=== PATIENT | female | born 1990 | race African-American/Black ===

== ENCOUNTER 2019-07-21 07:55 | Emergency (ER) | payer SELFPAY ==
--- OUTSIDE RECORDS SUMMARY | 2019-07-21 08:00 | XMS REPORT | Summary of Care ---
:1990 Author Organization [facility] Address [address] [place] [id number] Care Team Providers Name Role Phone Umm Kaiser Babin Primary Care Provider Reason for Visit Reason Comments Tooth Pain Abscess Auth/Cert Status Reason Specialty Diagnoses / Referred By Referred To Procedures Contact Contact [facility] [address] [place] [address] [place] [address] Encounter Details Date Type Department Care Team Description 07/19/2019 Emergency [facility] Jose Hunter MD Pain due to dental Department [facility] caries (Primary Dx) [address] [place] [address] [id number] [place] [address] [place], [place] [phone] Allergies No Known Allergiesdocumented as of this encounter (statuses as of 07/19/2019) Medications Medication Sig Dispensed Refills Start Date End Date Status chlorhexidine Swish and 473 mL 0 12/15/2016 Active (PERIDEX) 0.12 % spit out 15 mouthwash mL 2 (two) times daily. nystatin/maalox/diph Take 10 mL by 1 Bottle 0 12/15/2016 Active enhydrAMINE/lidocain mouth as e 2 % viscous needed for 1:1:1:1 Susp Pain (scale suspension 4-6). naproxen sodium 550 Take 1 tablet 14 tablet 0 01/17/2018 Active mg tablet by mouth 2 (two) times daily with meals. acetaminophen-codein Take 1 tablet 15 tablet 0 07/19/2019 Active e (TYLENOL-CODEINE by mouth #3) 300-30 mg every 6 (six) tabletIndications: hours as Pain due to dental needed for caries Pain (scale 4-6). penicillin v Take 1 tablet 21 tablet 0 07/19/2019 07/26/2019 Active potassium 500 mg by mouth 3 tabletIndications: (three) times Pain due to dental daily for 7 caries days. ibuprofen 600 mg Take 1 tablet 20 tablet 0 07/19/2019 Active tabletIndications: by mouth 3 Pain due to dental (three) times caries daily with meals. ibuprofen 600 mg Take 1 tablet 20 tablet 0 07/19/2019 07/19/2019 Discontinued tabletIndications: by mouth 3 Pain due to dental (three) times caries daily with meals. documented as of this encounter (statuses as of 07/19/2019) Active Problems No known active problemsdocumented as of this encounter (statuses as of 2018) Social History Tobacco Use Types Packs/Day Years Used Date Never Smoker Alcohol Use Drinks/Week oz/Week Comments Not Asked 0 Standard drinks or equivalent 0.0 Sex Assigned at Date Recorded Not on file Job Start Date Occupation Industry Not on file Not on file Not on file Travel History Travel Start Travel End No recent travel history available. documented as of this encounter Last Filed Vital Signs Vital Sign Reading Time Taken Comments Blood Pressure 150/114 07/19/2019 8:30 AM CDT Pulse 98 07/19/2019 8:30 AM CDT Temperature 37.3 C (99.2 F) 07/19/2019 8:20 AM CDT Respiratory Rate 16 07/19/2019 8:30 AM CDT Oxygen Saturation 100% 07/19/2019 8:30 AM CDT Inhaled Oxygen Concentration - - Weight 79.4 kg (175 lb) 07/19/2019 8:20 AM CDT Height 154.9 cm (5' 1") 07/19/2019 8:20 AM CDT Body Mass Index 33.07 07/19/2019 8:20 AM CDT documented in this encounter Discharge Instructions Jose Sandhu MD - 07/19/2019 DIAGNOSIS Diagnoses that have been ruled out: None Diagnoses that are still under consideration: None Final diagnoses: Pain due to dental caries NO LIFE-THREATENING FINDINGS ON TODAY'S EXAM. PROCEDURES IN THE ER TODAY: No orders of the defined types were placed in this encounter. MEDICATIONS ADMINISTERED IN THE ER TODAY: Orders Placed This Encounter Medications HYDROcodone-acetaminophen (NORCO 5) 5-325 mg tablet 1 tablet ibuprofen (IBU) tablet 600 mg acetaminophen-codeine (TYLENOL-CODEINE #3) 300-30 mg tablet ibuprofen 600 mg tablet penicillin v potassium 500 mg tablet YOUR PRESCRIPTIONS AND [id number] MEDICATION RECOMMENDATIONS: Pen VK Tylenol #3 Ibuprofen SPECIAL CARE INSTRUCTIONS: Follow up with Dentist Return to the ED if worsening of symptoms FOLLOW-UP RECOMMENDATIONS: RECOMMEND FOLLOW-UP WITH A PRIMARY CARE PROVIDER OR SPECIALIST IN 2-5 DAYS, ESPECIALLY IF NO IMPROVEMENT IN SYMPTOMS. TO FOLLOW-UP WITHIN THE [facility], TRY THESE OPTIONS (CLINIC APPOINTMENTS AVAILABLE ON [id number] BASIS): 1. SCHEDULE AN APPOINTMENT ONLINE AT WWW[facility] 2. OR CALL THE [facility] AT OR 3. OR CALL YOUR [facility] PHYSICIAN'S OFFICE DIRECTLY IF YOU ARE ALREADY AN ESTABLISHED [facility] PATIENT. OR, YOU MAY FOLLOW-UP WITH A PROVIDER OF YOUR CHOICE, SUCH : 1. A PHYSICIAN OF YOUR CHOICE 2. [facility], . LOCATIONS IN [facility] 3. [facility], [address] [place] [address]; RETURN TO ER FOR WORSENING OF SYMPTOMS. AttachmentsThe following attachments cannot be sent through Care Everywhere.Dental Cavity ([place])Tooth Decay, Understanding ([place]) documented in this encounter Plan of Treatment Health Maintenance Due Date Last Done Comments VARICELLA VACCINES (1 of 2 - 13+ 2003 2-dose series) DTaP,Tdap,and Td Vaccines (1 - 2009 Tdap) PAP SMEAR 2011 INFLUENZA VACCINE (Retired 08/01/2019 version) PNEUMOCOCCAL 0-64 YEARS COMBINED Aged Out No longer eligible based on SERIES patient's age to complete this topic documented as of this encounter Procedures Procedure Name Priority Date/Time Associated Diagnosis Comments NOTICE OF PRIVACY Routine 07/19/2019 8:11 AM CDT PRACTICES documented in this encounter Results Not on filedocumented in this encounter Visit Diagnoses Diagnosis Pain due to dental caries - Primary documented in this encounter Administered Medications Medication Order MAR Action Action Date Dose Rate Site HYDROcodone-acetaminophen Given 07/19/2019 9:17 AM CDT 1 tablet (NORCO 5) 5-325 mg tablet 1 tablet 1 tablet, Oral, ONCE, 1 dose, Fri07/19/19 at 1015, STACY ibuprofen (IBU) tablet 600 mg Given 07/19/2019 9:17 AM CDT 600 mg 600 mg, Oral, ONCE, 1 dose, Fri07/19/19 at 1015, STACY documented in this encounter
--- OUTSIDE RECORDS SUMMARY | 2019-07-21 08:00 | XMS REPORT ---
:1990 [facility] Address [address] [place] [address] [address] [place] [address] Care Team Providers Name Role Phone Unavailable Unavailable Unavailable Problems This patient has no known problems. Allergies, Adverse Reactions, Alerts This patient has no known allergies or adverse reactions. Medications This patient has no known medications.
[2019-07-21] MEDS ORDERED: ONDANSETRON 4 MG/2 ML VIAL ONE (08:37)
[2019-07-21] MEDS ORDERED: NA CHLORIDE 0.9% 1,000 ML ONE (08:37)
[2019-07-21] MEDS ORDERED: LIDOCAINE 1% MPF 5 ML VIAL ONE (08:37)
[2019-07-21 08:42] LABS: Absolute Lymphocytes (CBC) 1.3 K/uL (0.7-4.9); Basophils % 0.6 % (0-1.3); Hematocrit 33.2 % (36.0-45.0); Lymphocytes % 11.9 % (15.3-44.8); MPV 7.3 fL (7.6-11.3)
[2019-07-21] MEDS ORDERED: dexAMETHasone 10 MG/ML VIAL ONE (08:42)
[2019-07-21] MEDS ORDERED: MORPHINE 4 MG/ML SYR ONE (08:43)
[2019-07-21 08:57] LABS: BUN Blood Urea Nitrogen 8 mg/dL (7-18); Bicarbonate 26 mmol/L (21-32); Glucose Level 119 mg/dL (74-106); Potassium 3.9 mmol/L (3.5-5.1); Sodium Level 140 mmol/L (136-145)
--- NOTE | 2019-07-21 09:47 | RAD REPORT ---
[facility] DES[facility]: eval for facial abscess Facial pain and swelling COMPARISON: No comparisons TECHNIQUE: Axial 2 mm thick images of the face with contrast were obtained with sagittal and coronal reconstruction images. All CT scans are performed using dose optimization technique as appropriate and may include automated exposure control or mA/KV adjustment according to patient size. FINDINGS: A large subperiosteal abscess is seen along the left buccal cortex of mandible measuring 2 4 x 15 x 15 mm (AP x T x CC). Surrounding soft tissues are thickened and edematous.Moderate mucosal t hickening of the left maxillary antrum is seen. The left maxillary first and second molar roots are s een to project into the left maxillary antrum.No osteomyelitis of the mandible suspected. The globes and orbital contents are grossly unremarkable.Mastoid air cells are clear. Few mildly prom inent reactive lymph nodes are seen along both jugular chains. IMPRESSION: Large subperiosteal abscess along the left maxillary cortex buccal surface.
--- NOTE | 2019-07-21 10:43 | ER ---
Nurse's Notes [facility] Name: Issa Reilly Age: 29 yrs Sex: Female : 1990 Arrival Date: 07/21/2019 Time: 08:01 Bed 7 Private MD: Diagnosis: Cutaneous abscess of face;Periapical abscess without sinus Presentation: 07/21 08:21 Presenting complaint: states: had a root canal an filling fell out about a iw month ago, had a lot of pain Friday, went to [place] [facility] and was prescribed abx, pain and swelling has gotten worse, large amount of swelling to left side of face, difficult to speak. Transition of care: patient was not received from another setting of care. Onset of symptoms was July 16, 2019. Risk Assessment: Do you want to hurt yourself or someone else? Patient reports no desire to harm self or others. Initial Sepsis Screen: Does the patient meet any 2 criteria? No. Patient's initial sepsis screen is negative. Does the patient have a suspected source of infection? No. Patient's initial sepsis screen is negative. Care prior to arrival: None. 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 - Social history:: Smoking status: Patient/guardian denies using tobacco. - Ebola Screening: : Patient negative for fever greater than or equal to 101.5 degrees Fahrenheit, and additional compatible Ebola Virus Disease symptoms Patient denies exposure to infectious person Patient denies travel to an Ebola-affected area in the 21 days before illness onset No symptoms or risks identified at this time. - Family history:: not pertinent. - Hospitalizations: : No recent hospitalization is reported. Assessment: 08:30 General: Appears in no apparent distress. uncomfortable, well groomed, well developed, sg well nourished, Behavior is calm, cooperative, appropriate for age. Pain: Complains of pain in left cheek and left jaw Quality of pain is described as aching, tender. Neuro: Level of Consciousness is awake, alert, obeys commands, Oriented to person, place, time, Wire Stitcher Operator are equal bilaterally Moves all extremities. Gait is steady, Speech is normal. Cardiovascular: No deficits noted. Capillary refill is brisk in bilateral fingers Patient's skin is warm and dry. Chest pain is denied. Respiratory: Airway is patent Respiratory effort is even, unlabored, Respiratory pattern is regular, symmetrical. GI: Abdomen is round non-distended, Reports normal bowel habits, tolerance of fluids, tolerance of food. : No signs and/or symptoms were reported regarding the genitourinary system. EENT: Oral mucosa is moist. swelling noted to upper jaw on left side of mouth. Throat is clear. Derm: Skin is pink, warm \T\ dry. Musculoskeletal: Circulation, motion, and sensation intact. Range of motion: intact in all extremities. 09:40 Reassessment: Patient appears in no apparent distress at this time. Patient and/or sg family updated on plan of care and expected duration. Pain level reassessed. Patient is alert, oriented x 3, equal unlabored respirations, skin warm/dry/pink. pt reports still experiencing pain in the upper portion of left side of jaw, reports pain is decreased but still uncomfortable, updated pt that the CT results are not back yet and that the ERP may have to I/D area to relieve the pain and pressure, pt reports understanding, will continue to monitor Patient states symptoms have not improved. Vital Signs: 08:23 BP 148 / 105; Pulse 115; Resp 18 S; Temp 98.3(TE); Pulse Ox 98% on R/A; Weight 68.04 iw kg; Height 5 ft. 1 in. (154.94 cm); Pain 10/10; 09:46 BP 133 / 85; Pulse 92; Resp 16; Pulse Ox 98% on R/A; Pain 9/10; sg 08:23 Body Mass Index 28.34 (68.04 kg, 154.94 cm) iw ED Course: 08:01 Patient arrived in ED. cf2 08:13 Dario Ruiz MD is Attending Physician. rn 08:23 Triage completed. iw 08:24 Arm band placed on. iw 08:30 Initial lab(s) drawn, by me, sent to lab. Inserted saline lock: 22 gauge in right sg antecubital area, using aseptic technique. Blood collected. 09:00 Vineet Balderas, RN is Primary Nurse. 09:19 CT Facial Bones W/ Con \T\ Mpr In Process Unspecified. EDMS Administered Medications: 08:40 Drug: morphine 4 mg {Note: RASS 0.} Route: IVP; Site: right antecubital; sg 09:30 Follow up: Response: No adverse reaction; Pain is unchanged, physician notified; RASS: sg Alert and Calm (0) 08:40 Drug: Zofran 4 mg Route: IVP; Site: right antecubital; sg 08:40 Drug: NS 0.9% 500 ml Route: IV; Rate: bolus; Site: right antecubital; sg 08:42 Drug: Decadron - Dexamethasone 10 mg Route: IVP; Site: right antecubital; sg 09:00 Drug: Lidocaine (1 %) 5 mg {Note: medication to be administered by for I/D.} sg Route: Infiltration; 10:52 Drug: Clindamycin 600 mg Route: IM; Site: right ventrogluteal; Outcome: 10:42 Discharge ordered by . rn 11:13 Patient left the ED. ph Signatures: Dispatcher [employer] EDMS Vineet Balderas RN RN sg Williams, Irene, RN RN Dario Ruiz MD MD rn Hall, Patricia, RN RN Selwyn Langford 2 Corrections: (The following items were deleted from the chart) 09:40 08:40 morphine 4 mg IVP in right antecubital sg
--- NOTE | 2019-07-21 10:44 | EDPHYS ---
Physician Documentation [facility] Name: Issa Reilly Age: 29 yrs Sex: Female : 1990 Arrival Date: 07/21/2019 Time: 08:01 Bed 7 Private MD: ED Physician Dario Ruiz HPI: 07/21 08:27 This 29 yrs old Black Female presents to ER via Ambulatory with complaints of Abscess. rn 08:27 the patient presents with a swollen area of the face. Description: swollen. Onset: The rn symptoms/episode began/occurred 4 day(s) ago. Possible cause(s): unknown. Associated signs and symptoms: Pertinent positives: swelling, Pertinent negatives: drainage, shortness of breath. Severity of symptoms: At their worst the symptoms were moderate, in the emergency department the symptoms are unchanged. The patient has not experienced similar symptoms in the past. The patient has been recently seen by a physician:. Reports swelling to left face that began 4-5 days ago, reports started with tooth pain, went to [place] [facility] and given abx, reports worsening. No trouble swallowing or breathing.. 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 - Social history:: Smoking status: Patient/guardian denies using tobacco. - Ebola Screening: : Patient negative for fever greater than or equal to 101.5 degrees Fahrenheit, and additional compatible Ebola Virus Disease symptoms Patient denies exposure to infectious person Patient denies travel to an Ebola-affected area in the 21 days before illness onset No symptoms or risks identified at this time. - Family history:: not pertinent. - Hospitalizations: : No recent hospitalization is reported. ROS: 08:27 Constitutional: Negative for fever, chills, and weight loss, Eyes: Negative for injury, rn pain, redness, and discharge, ENT: + left facial swelling and dental pain Neck: Negative for injury Cardiovascular: Negative for chest pain, palpitations, and edema, Respiratory: Negative for shortness of breath, cough, wheezing, and pleuritic chest pain, Abdomen/GI: Negative for abdominal pain, nausea, vomiting, diarrhea, and constipation, Neuro: Negative for headache, weakness, numbness, tingling, and seizure. Exam: 08:27 Constitutional: This is a well developed, well nourished patient who is awake, alert, rn and in no acute distress. Ambulatory to room without difficulty or assistance Head/Face: Atraumatic. ENT: +poor dentition with left perimandibular swelling with area of 2cm induration/firmness in buccal space. Neck: Trachea midline, no thyromegaly or masses palpated, and no cervical lymphadenopathy. Supple, full range of motion without nuchal rigidity, or vertebral point tenderness. No Meningismus. Cardiovascular: Tachycardic, regular, pulses intact Respiratory: No increased work of breathing, no retractions or nasal flaring. MS/ Extremity: Pulses equal, no cyanosis. Neurovascular intact. Full, normal range of motion. Equal circumference. Neuro: Awake and alert, GCS 15, oriented to person, place, time, and situation. Cranial nerves II-XII grossly intact. Motor strength 5/5 in all extremities. Sensory grossly intact. Cerebellar exam normal. Normal gait. Vital Signs: 08:23 BP 148 / 105; Pulse 115; Resp 18 S; Temp 98.3(TE); Pulse Ox 98% on R/A; Weight 68.04 iw kg; Height 5 ft. 1 in. (154.94 cm); Pain 10/10; 09:46 BP 133 / 85; Pulse 92; Resp 16; Pulse Ox 98% on R/A; Pain 9/10; sg 08:23 Body Mass Index 28.34 (68.04 kg, 154.94 cm) iw Procedures: 10:14 I \T\ D: Incision and drainage was performed for an abscess of the left mandibular rn Prepped with alcohol, Anesthetized with 3 ml's 1% Lidocaine. Incised with #11 blade. Drained moderate amount purulent fluid. serosanguinous fluid. the patient tolerated the procedure well, Irrigated and then probed with 18g needle to look for pockets. Used wall suction to drain remaining purulence. MDM: 08:13 Patient medically screened. rn 10:41 Differential diagnosis: abscess. Data reviewed: vital signs, nurses notes, lab test rn result(s), radiologic studies, and as a result, I will discharge patient. Counseling: I had a detailed discussion with the patient and/or guardian regarding: the historical points, exam findings, and any diagnostic results supporting the discharge/admit diagnosis, lab results, radiology results, the need for outpatient follow up, to return to the emergency department if symptoms worsen or persist or if there are any questions or concerns that arise at home. Response to treatment: the patient's symptoms have markedly improved after treatment, and as a result, I will discharge patient. Special discussion: I discussed with the patient/guardian in detail that at this point there is no indication for admission to the hospital. It is understood, however, that if the symptoms persist or worsen the patient needs to return immediately for re-evaluation. 10:41 Special discussion: Based on the history and exam findings, there is no indication for rn further emergent testing or inpatient evaluation. I discussed with the patient/guardian the need to see a dentist for further evaluation of the symptoms. 07/21 08:24 Order name: CBC with Diff; Complete Time: 09:01 rn 07/21 08:24 Order name: Basic Metabolic Panel; Complete Time: 09:01 rn 07/21 08:24 Order name: CT Facial Bones W/ Con \T\ Mpr; Complete Time: 10:14 rn 07/21 08:24 Order name: IV Start; Complete Time: 09:01 rn 07/21 08:24 Order name: NPO; Complete Time: 09:20 rn 07/21 08:24 Order name: Incision \T\ Drainage Setup; Complete Time: 09:20 rn Administered Medications: 08:40 Drug: morphine 4 mg {Note: RASS 0.} Route: IVP; Site: right antecubital; sg 09:30 Follow up: Response: No adverse reaction; Pain is unchanged, physician notified; RASS: sg Alert and Calm (0) 08:40 Drug: Zofran 4 mg Route: IVP; Site: right antecubital; sg 08:40 Drug: NS 0.9% 500 ml Route: IV; Rate: bolus; Site: right antecubital; sg 08:42 Drug: Decadron - Dexamethasone 10 mg Route: IVP; Site: right antecubital; sg 09:00 Drug: Lidocaine (1 %) 5 mg {Note: medication to be administered by for I/D.} sg Route: Infiltration; 10:52 Drug: Clindamycin 600 mg Route: IM; Site: right ventrogluteal; sg Disposition: 07/21/19 10:42 Discharged to Home. Impression: Cutaneous abscess of face, Periapical abscess without sinus. - Condition is Stable. - Discharge Instructions: Dental Abscess, Incision and Drainage, Incision and Drainage, Care After. - Prescriptions for Clindamycin HCl 300 mg Oral Capsule - take 1 capsule by ORAL route every 6 hours for 10 days; 40 capsule. - Medication Reconciliation Form, Thank You Letter, Antibiotic Education, Prescription Opioid Use, Work release form form. - Follow up: Private Physician; When: As needed; Reason: Recheck today's complaints, Re-evaluation by your physician. - Problem is an ongoing problem. - Symptoms have improved. Signatures: Dispatcher [employer] EDMS Vineet Balderas RN RN sg Colleen Mccurdy RN RN iw Dario Ruiz MD MD rn Hall, Patricia, RN RN ph Corrections: (The following items were deleted from the chart) 11:13 10:42 07/21/2019 10:42 Discharged to Home. Impression: Cutaneous abscess of face; ph Periapical abscess without sinus. Condition is Stable. Forms are Medication Reconciliation Form, Thank You Letter, Antibiotic Education, Prescription Opioid Use. Follow up: Private Physician; When: As needed; Reason: Recheck today's complaints, Re-evaluation by your physician. Problem is an ongoing problem. Symptoms have improved. rn
[2019-07-21] MEDS ORDERED: CLINDAMYCIN IV 150 MG/ML (4 mL) VIAL ONE (10:45)
== END 2019-07-21 11:13 | disposition home or self-care (01) ==
LOC: ER 07:55
PROC: 0J910ZZ Drainage of Face Subcutaneous Tissue and Fascia, Open Approach (ICD-10-PCS; principal; 2019-07-21)
DX: L02.01 Cutaneous abscess of face (principal); K04.7 Periapical abscess without sinus
CPT/HCPCS: 36415; 70487; 76377; 80048; 85025; 96372; 96374; 96375; 99284; J1100; J2405; J7030; Q9967; S0077

== ENCOUNTER 2020-01-07 08:08 | Emergency (ER) | payer SELFPAY ==
--- OUTSIDE RECORDS SUMMARY | 2020-01-07 08:10 | XMS REPORT ---
:1990 [facility] Address [address] [place] [address] Care Team Providers Name Role Phone Unavailable Unavailable Unavailable Problems This patient has no known problems. Allergies, Adverse Reactions, Alerts This patient has no known allergies or adverse reactions. Medications This patient has no known medications.
[2020-01-07] MEDS ORDERED: MORPHINE 4 MG/ML SYR ONE (10:02)
[2020-01-07] MEDS ORDERED: ONDANSETRON 4 MG (ODT) TAB ONE (10:02)
--- NOTE | 2020-01-07 10:24 | RAD REPORT ---
EXAM DESCRIPTION: CT - C Spine Wo Con - 01/07/2020 10:13 am CLINICAL HISTORY: Pain;Numbness/tingling History of trauma with neck injury and radiculopathy. COMPARISON: Spine Lumbar Wo Con dated 01/07/2020 FINDINGS: The cervical vertebral body heights and disc spaces are maintained. No evidence of acute cervical spine fracture or subluxation. Prevertebral soft tissues are normal in thickness. IMPRESSION: Negative for acute cervical spine abnormality. All CT scans are performed using dose optimization technique as appropriate and may include automated exposure control or mA/KV adjustment according to patient size.
[2020-01-07 10:25] LABS: Urine Blood TRACE (NEG); Urine Glucose NEGATIVE (NEG); Urine Protein NEGATIVE (NEG)
--- NOTE | 2020-01-07 10:30 | RAD REPORT ---
EXAM DESCRIPTION: CT - Spine Lumbar Wo Con - 01/07/2020 10:13 am CLINICAL HISTORY: Radiculopathy.Trauma, back injury Pain;Numbness/tingling COMPARISON: MRI LUMBAR SPINE W O CON dated 06/15/2014 TECHNIQUE: Axial noncontrast CT imaging of the lumbar spine was performed with coronal and sagittal re-formatted images. All CT scans are performed using dose optimization technique as appropriate and may include automated exposure control or mA/KV adjustment according to patient size. FINDINGS: No acute lumbar spine fracture seen. No aggressive marrow pattern or malalignment. Paraspinal tissues are normal in thickness. No paraspinal abscess or hematoma seen. Focal disc protrusion is present at L5-S1. IMPRESSION: No acute lumbar spine abnormality discerned. Focal disc protrusion suspected L5-S1. Followup nonemergent MR imaging of the lumbar spine could be o btained for further evaluation if clinically warranted.
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
[2020-01-07 11:00] LABS: Urine Bacteria >50 /HPF (<20); Urine RBC <5 /HPF (NONE SEEN)
[2020-01-07 11:01] LABS: Urine Culture Reflex Order NOT NEEDED; Urine Mucus 2+ /HPF (NONE SEEN)
[2020-01-07 11:43] VITALS: BP 128/99; TEMP 97.1; O2SAT 100
== END 2020-01-07 11:10 | disposition home or self-care (01) ==
LOC: ER 08:08
DX: M54.5 Low back pain (principal); V43.52XA Car driver injured in collision with other type car in traffic accident, initial encounter; Y93.89 Activity, other specified; Y92.9 Unspecified place or not applicable
CPT/HCPCS: 72125; 72131; 81003; 81015; 81025; 87077; 87086; 87088; 87186; 96372; 99284